=== PATIENT | female | born 1950 | race African-American/Black ===

== ENCOUNTER 2017-08-20 07:47 | Inpatient (IN) | payer MEDICARE, MEDICAID ==
[~2017-08-20] VITALS: Ht 165.1 cm; Wt 101.6 kg
[~2017-08-20 07:47] MED LIST: BENA5TAB3 PO; CLON0.1T PO; GLIP5TAB12 PO; HYDR12.529 PO; LISI-186 PO
[2017-08-20] MEDS ORDERED: KETOROLAC 60MG/2ML VIAL IM STA (14:16)
[2017-08-20 14:39] LABS: EOSINOPHILS % 7.4 % (0.0-5.0); HEMATOCRIT. 37.2 % (36.0-48.0); HEMOGLOBIN. 12.3 g/dL (12.0-16.0); LYMPHOCYTES % 59.2 % (20.0-50.0); MEAN CORPUSCULAR HEMOGLOBIN 26.7 pg (28.0-32.0); MEAN CORPUSCULAR VOLUME 80.7 fL (81.0-99.0); MEAN PLATELET VOLUME 8.1 fl (7.4-10.4); MONOCYTES % 4.8 % (2.0-8.0); NEUTROPHILS % 27.6 % (40.0-76.0); PLATELET 164 x1000/uL (130-400); RED BLOOD CELL COUNT 4.61 mill/uL (4.2-5.4); RED CELL DISTRIBUTION WIDTH 17.9 % (11.6-14.6)
[2017-08-20 14:43] LABS: CHLORIDE 104 mEq/L (98-107)
[2017-08-20 14:45] LABS: INR 1.3; PROTHROMBIN TIME 13.4 sec (9.4-11.6)
[2017-08-20 14:52] LABS: CARBON DIOXIDE 29 mEq/L (21-32)
[2017-08-20 16:53] LABS: CLARITY URINE CLEAR (CLEAR); COLOR URINE YELLOW (YELLOW); GLUCOSE URINE NEGATIVE (NEGATIVE); KETONES URINE NEGATIVE (NEGATIVE); LEUKOCYTE ESTERASE URINE TRACE (NEGATIVE); NITRITE URINE NEGATIVE (NEGATIVE); OCCULT BLOOD URINE NEGATIVE (NEGATIVE); PH URINE 5.5 (4.5-8.0); PROTEIN URINE NEGATIVE (NEGATIVE); SPECIFIC GRAVITY URINE 1.015 (1.005-1.030)
[2017-08-20] MEDS ORDERED: ACETAMINOPHEN WITH CODEINE 300/30MG TABLET PO ONE (17:00)
[2017-08-20 17:05] LABS: *AMPHETAMINES SCREEN URINE NEGATIVE (NEGATIVE); *BARBITURATES SCREEN URINE NEGATIVE (NEGATIVE); *BENZODIAZEPINES SCREEN URINE NEGATIVE (NEGATIVE); *COCAINE SCREEN URINE NEGATIVE (NEGATIVE); CANNABINOID URINE SCREEN NEGATIVE (NEGATIVE); METHADONE URINE SCREEN NEGATIVE (NEGATIVE); OPIATES URINE SCREEN NEGATIVE (NEGATIVE); PHENCYCLIDINE URINE SCREEN NEGATIVE (NEGATIVE)
[2017-08-21] MEDS ORDERED: TRAMADOL 50MG TABLET PO ONE (02:45)
[2017-08-21 04:36] VITALS: BP 171/88
[2017-08-21] MEDS ORDERED: MORPHINE SULFATE 2 MG/ML CPJ (NOT FOR IM USE) IV PRN (07:30)
[2017-08-21] MEDS ORDERED: CLONIDINE 0.1MG TABLET PO PRN (07:30)
[2017-08-21] MEDS ORDERED: IPRATROPIUM/ALBUTEROL 0.5-3(2.5)MG/3ML NEB INH PRN (07:30)
[2017-08-21] MEDS ORDERED: ACETAMINOPHEN 650MG SUPP PR PRN (07:30)
[2017-08-21] MEDS ORDERED: ACETAMINOPHEN 650MG/20.3ML UDC GT PRN (07:30)
[2017-08-21] MEDS ORDERED: DIPHENHYDRAMINE 50MG/ML VIAL IV PRN (07:30)
[2017-08-21] MEDS ORDERED: MAGNESIUM/ALUMINUM HYDROXIDE/SIMETHICONE 30ML UDC PO PRN (07:30)
[2017-08-21] MEDS ORDERED: NA PHOS,M-B/NA PHOS,DI-BA ENEMA 118ML PR PRN (07:30)
[2017-08-21] MEDS ORDERED: DOCUSATE SODIUM 100MG CAPSULE PO PRN (07:30)
[2017-08-21] MEDS ORDERED: ACETAMINOPHEN 325MG TABLET PO PRN (07:30)
[2017-08-21 07:44] VITALS: BP 141/85
[2017-08-21] MEDS ORDERED: MORPHINE SULFATE 4 MG/ML CPJ (NOT FOR IM USE) IV SCH (08:00)
[2017-08-21] MEDS: ENOXAPARIN 40MG/0.4ML SYR SUBCUT SCH ×2 (08:36→09:00)
[2017-08-21] MEDS ORDERED: PNEUMOCOCCAL 23-VAL P-SAC VAC 0.5 ML IM ONE (10:00)
[2017-08-21 10:53] LABS: CARBON DIOXIDE 26 mEq/L (21-32); CHLORIDE 105 mEq/L (98-107)
[2017-08-21] MEDS ORDERED: INFLUENZA VIRUS VACCINE 0.5ML SYR IM ONE (11:00)
[2017-08-21] MEDS ORDERED: DEXTROSE 50% WATER 50ML SYRINGE IV PRN (11:15)
[2017-08-21 11:56] VITALS: BP 167/81
[2017-08-21] MEDS: BLOOD SUGAR DIAGNOSTIC STRIP TEST SCH ×4 (11:59→20:35)
[2017-08-21] MEDS: INSULIN LISPRO 100 UNITS/ML SUBCUT SCH ×3 (12:03→20:40)
[2017-08-21] MEDS: SODIUM CHLORIDE 0.9% INJ 3ML FLUSH IVF SCH ×2 (13:57→21:12)
[2017-08-21] MEDS: SODIUM CHLORIDE 0.9% 1,000 ML IV SCH (14:02)
[2017-08-21] MEDS ORDERED: MORPHINE SULFATE 4 MG/ML CPJ (NOT FOR IM USE) IV PRN (15:15)
[2017-08-21] MEDS ORDERED: LORAZEPAM 2MG/ML CPJ IV NR (15:45)
[2017-08-21 16:00] VITALS: BP 162/91
[2017-08-21] MEDS: ONDANSETRON HCL 4MG/2ML VIAL IV PRN ×2 (16:30→22:37)
[2017-08-21] MEDS: CLONIDINE 0.1MG TABLET PO SCH ×2 (16:30→21:12)
[2017-08-21] MEDS: HYDROCHLOROTHIAZIDE 12.5MG CAPSULE PO SCH (16:31)
[2017-08-21 17:19] LABS: BASOPHILS % 3.7 % (0.0-2.0); EOSINOPHILS % 7.2 % (0.0-5.0); HEMATOCRIT. 35.4 % (36.0-48.0); HEMOGLOBIN. 11.6 g/dL (12.0-16.0); LYMPHOCYTES % 46.6 % (20.0-50.0); MEAN CORPUSCULAR HEMOGLOBIN 26.6 pg (28.0-32.0); MEAN CORPUSCULAR VOLUME 81.1 fL (81.0-99.0); MEAN PLATELET VOLUME 8.2 fl (7.4-10.4); MONOCYTES % 8.7 % (2.0-8.0); NEUTROPHILS % 33.8 % (40.0-76.0); PLATELET 156 x1000/uL (130-400); RED BLOOD CELL COUNT 4.36 mill/uL (4.2-5.4)
[2017-08-21] MEDS: HYDROCODONE/ACETAMINOPHEN 5/325MG TABLET PO PRN (18:38)
[2017-08-21] MEDS: BENAZEPRIL 5MG TABLET PO SCH (18:38)
[2017-08-21 20:00] VITALS: BP 128/52
[2017-08-21] MEDS: METOCLOPRAMIDE HCL 10MG/2ML VIAL IV SCH (23:55)
[2017-08-22] VITALS: BP 105/60
[2017-08-22 04:00] VITALS: BP 115/55
[2017-08-22] MEDS: METOCLOPRAMIDE HCL 10MG/2ML VIAL IV SCH ×3 (05:43→23:06)
[2017-08-22] MEDS: CLONIDINE 0.1MG TABLET PO SCH ×3 (05:49→21:59)
[2017-08-22] MEDS: SODIUM CHLORIDE 0.9% INJ 3ML FLUSH IVF SCH ×3 (05:49→23:08)
[2017-08-22] MEDS: BLOOD SUGAR DIAGNOSTIC STRIP TEST SCH ×4 (06:38→21:44)
[2017-08-22] MEDS: INSULIN LISPRO 100 UNITS/ML SUBCUT SCH ×4 (06:43→21:00)
[2017-08-22 08:00] VITALS: BP 118/64
[2017-08-22] MEDS: BENAZEPRIL 5MG TABLET PO SCH (08:45)
[2017-08-22] MEDS: HYDROCODONE/ACETAMINOPHEN 5/325MG TABLET PO PRN ×4 (08:45→23:06)
[2017-08-22] MEDS: HYDROCHLOROTHIAZIDE 12.5MG CAPSULE PO SCH (08:46)
[2017-08-22] MEDS: GLIPIZIDE 5MG TABLET PO SCH (08:46)
[2017-08-22] MEDS: ENOXAPARIN 40MG/0.4ML SYR SUBCUT SCH (08:46)
[2017-08-22] MEDS: FAMOTIDINE 20MG TABLET PO SCH ×2 (11:51→21:55)
[2017-08-22 12:00] VITALS: BP 107/55
[2017-08-22 12:17] LABS: BASOPHILS % 0.5 % (0.0-2.0); EOSINOPHILS % 5.8 % (0.0-5.0); HEMATOCRIT. 30.5 % (36.0-48.0); LYMPHOCYTES % 48.8 % (20.0-50.0); MEAN CORPUSCULAR HEMOGLOBIN 26.7 pg (28.0-32.0); MEAN CORPUSCULAR VOLUME 81.7 fL (81.0-99.0); MEAN PLATELET VOLUME 8.7 fl (7.4-10.4); MONOCYTES % 8.7 % (2.0-8.0); NEUTROPHILS % 36.2 % (40.0-76.0); PLATELET 126 x1000/uL (130-400); RED BLOOD CELL COUNT 3.74 mill/uL (4.2-5.4); RED CELL DISTRIBUTION WIDTH 17.6 % (11.6-14.6)
[2017-08-22 12:40] LABS: CARBON DIOXIDE 31 mEq/L (21-32); CHLORIDE 101 mEq/L (98-107)
[2017-08-22] MEDS ORDERED: LORAZEPAM 2MG/ML CPJ IV SCH (13:00)
[2017-08-22 16:00] VITALS: BP 108/54
[2017-08-22] MEDS: SODIUM CHLORIDE 0.9% 1,000 ML IV SCH ×2 (17:23)
[2017-08-22 20:00] VITALS: BP 125/71
[2017-08-23 04:00] VITALS: BP 125/72
[2017-08-23] MEDS: CLONIDINE 0.1MG TABLET PO SCH ×3 (06:00→21:31)
[2017-08-23] MEDS: HYDROCODONE/ACETAMINOPHEN 5/325MG TABLET PO PRN ×2 (06:14→21:31)
[2017-08-23] MEDS: SODIUM CHLORIDE 0.9% INJ 3ML FLUSH IVF SCH ×3 (06:15→21:31)
[2017-08-23] MEDS: BLOOD SUGAR DIAGNOSTIC STRIP TEST SCH ×4 (06:15→20:12)
[2017-08-23] MEDS: METOCLOPRAMIDE HCL 10MG/2ML VIAL IV SCH ×3 (06:15→18:00)
[2017-08-23] MEDS: INSULIN LISPRO 100 UNITS/ML SUBCUT SCH ×4 (06:16→21:00)
[2017-08-23 08:00] VITALS: BP 123/68
[2017-08-23] MEDS: SODIUM CHLORIDE 0.9% 1,000 ML IV SCH (09:20)
[2017-08-23] MEDS: HYDROCHLOROTHIAZIDE 12.5MG CAPSULE PO SCH (09:23)
[2017-08-23] MEDS: FAMOTIDINE 20MG TABLET PO SCH ×2 (09:23→21:31)
[2017-08-23] MEDS: GLIPIZIDE 5MG TABLET PO SCH (09:23)
[2017-08-23] MEDS: BENAZEPRIL 5MG TABLET PO SCH (09:23)
[2017-08-23 12:00] VITALS: BP 118/71
[2017-08-23] MEDS ORDERED: MORPHINE SULFATE 2 MG/ML CPJ (NOT FOR IM USE) IV PRN (15:00)
[2017-08-23 16:00] VITALS: BP 122/92
[2017-08-23] MEDS: CEFAZOLIN 1000MG PREMIX 50 ML IV SCH (16:33)
[2017-08-23 20:00] VITALS: BP 136/77
[2017-08-23] MEDS ORDERED: CEFAZOLIN SODIUM 1000MG/VIAL IV SCH (22:00)
[2017-08-24] VITALS: BP 134/85
[2017-08-24] MEDS: METOCLOPRAMIDE HCL 10MG/2ML VIAL IV SCH
[2017-08-24 00:05] LABS: BASOPHILS % 0.6 % (0.0-2.0); EOSINOPHILS % 5.7 % (0.0-5.0); HEMOGLOBIN. 10.7 g/dL (12.0-16.0); LYMPHOCYTES % 53.4 % (20.0-50.0); MEAN CORPUSCULAR HEMOGLOBIN 27.1 pg (28.0-32.0); MEAN CORPUSCULAR VOLUME 81.2 fL (81.0-99.0); MEAN PLATELET VOLUME 8.6 fl (7.4-10.4); MONOCYTES % 8.5 % (2.0-8.0); NEUTROPHILS % 31.8 % (40.0-76.0); PLATELET 115 x1000/uL (130-400); RED BLOOD CELL COUNT 3.94 mill/uL (4.2-5.4); RED CELL DISTRIBUTION WIDTH 17.6 % (11.6-14.6)
[2017-08-24 00:18] LABS: INR 1.3; PROTHROMBIN TIME 13.1 sec (9.4-11.6)
[2017-08-24 00:24] LABS: CARBON DIOXIDE 31 mEq/L (21-32); CHLORIDE 99 mEq/L (98-107)
[2017-08-24] MEDS: CEFAZOLIN 1000MG PREMIX 50 ML IV SCH ×2 (01:23→08:51)
[2017-08-24 04:00] VITALS: BP 150/73
[2017-08-24] MEDS: CLONIDINE 0.1MG TABLET PO SCH (05:08)
[2017-08-24] MEDS: SODIUM CHLORIDE 0.9% INJ 3ML FLUSH IVF SCH (05:25)
[2017-08-24] MEDS: BLOOD SUGAR DIAGNOSTIC STRIP TEST SCH ×2 (05:40→12:37)
[2017-08-24] MEDS: INSULIN LISPRO 100 UNITS/ML SUBCUT SCH ×2 (05:40→13:15)
[2017-08-24 08:00] VITALS: BP 172/134
[2017-08-24] MEDS: FAMOTIDINE 20MG TABLET PO SCH (08:50)
[2017-08-24] MEDS: GLIPIZIDE 5MG TABLET PO SCH (08:51)
[2017-08-24] MEDS: BENAZEPRIL 5MG TABLET PO SCH (08:51)
[2017-08-24] MEDS: HYDROCHLOROTHIAZIDE 12.5MG CAPSULE PO SCH (08:51)
[2017-08-24] MEDS: HYDROCODONE/ACETAMINOPHEN 5/325MG TABLET PO PRN (08:51)
[2017-08-24 12:00] VITALS: BP 136/76
[2017-08-24 12:54] VITALS: BP 136/70
== END 2017-08-24 14:00 | disposition home or self-care (01) | DRG 347 ==
LOC: ER 08:18 → 8WST 22:40 → ENRESERV 08-21 02:29
PROVIDERS: ADMIT Family Medicine; ATTEND Family Medicine
PROC: 02HV33Z Insertion of Infusion Device into Superior Vena Cava, Percutaneous Approach (ICD-10-PCS; principal; 2017-08-21)
PROC: B548ZZA Ultrasonography of Superior Vena Cava, Guidance (ICD-10-PCS; 2017-08-21)
PROC: B5181ZA Fluoroscopy of Superior Vena Cava using Low Osmolar Contrast, Guidance (ICD-10-PCS; 2017-08-21)
DX: M48.54XA Collapsed vertebra, not elsewhere classified, thoracic region, initial encounter for fracture (principal); E44.0 Moderate protein-calorie malnutrition; G95.9 Disease of spinal cord, unspecified; I10 Essential (primary) hypertension; E11.9 Type 2 diabetes mellitus without complications; M43.16 Spondylolisthesis, lumbar region; W10.9XXA Fall (on) (from) unspecified stairs and steps, initial encounter; M54.16 Radiculopathy, lumbar region; E66.9 Obesity, unspecified; Z79.899 Other long term (current) drug therapy; Z68.37 Body mass index [BMI] 37.0-37.9, adult; Z72.89 Other problems related to lifestyle; Y93.89 Activity, other specified; Y92.89 Other specified places as the place of occurrence of the external cause; Y99.8 Other external cause status
CPT/HCPCS: 36415; 36569; 71010; 72146; 72148; 74000; 74176; 76937; 77001; 80048; 80053; 80305; 81001; 82962; 83690; 85025; 85610; 86850; 86900; 93005; 93306; 96372; 99285; C1725; J0690; J1650; J1815; J1885; J2060; J2270; J2405; J2765; J7030